=== PATIENT | female | born 1940 | race Caucasian/White ===

== ENCOUNTER 2020-11-09 10:15 | Outpatient (REF) | payer MEDICARE, SELFPAY ==
--- NOTE | 2020-11-09 13:49 | MHC.AU.AHA ---
Adult Audiological Evaluation Date of Visit: 11/09/20 Marketing Operations Analyst Used: Not Applicable Reason for Appointment: Audiologic re-evaluation due to question of change in hearing ability. 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 Ear History: Family History of Hearing Loss?: Yes Bothersome Tinnitus/Ringing/Noises in Ears: Both Ears Ear used on the phone: Right Ear Medical History: Medical History: High Blood Pressure, Measles, Rheumatoid Arthritis Medication List: Irbesartan Calcium, Centrum multivitamin Hearing Instrument History- Right Ear: Snowblower Mechanic: Vir2us Model: [email or web address] M 90-RT Serial Number: [id number] Battery Size: Rechargeable Repair Warranty: 10/03/2022 Loss and Damage Warranty: Dispensed By: [facility] Date of Fittin07/15/2019 Hearing Instrument History- Left Ear: Snowblower Mechanic: Ubidyneak Model: [email or web address] M 90-RT Serial Number: [id number] Battery Size: Rechargeable Warranty: 10/03/2022 Loss and Damage Warranty: 10/03/2022 Dispensed By: [facility] Date of Fittin07/15/2019 Otoscopy: Right Ear: Unremarkable Left Ear: Unremarkable Tympanometry: Not performed at today's visit as previous hearing test indicated normal middle ear function bilaterally Hearing Evaluation: Transducer(s) Used: Insert Earphones Bone Conduction Method: Conventional Audiometry Stimuli Used: Pure Tones Right Ear: Description of Hearing: Moderate sloping to moderately-severe sensorineural hearing loss Left Ear: Description of Hearing: Moderate sloping to severe sensorineural hearing loss Speech Recognition Threshold (SRT): Method Used: Monitored Live Voice Stimuli Used: Spondee Words Right Ear: 40 dB HL Left Ear: 40 dB HL Word Discrimination: Method: Recorded Lists Word Lists Used: NU-6 Right Ear: 100% at 80 dB HL Left Ear: 80% at 80 dB HL Comparison: Compared to most recent evaluation: Overall thresholds have decreased 5 dB and speech discrimination ability is stable for both ears. Recommendations: Audiological re-evaluation in one year. Will send a reminder card. Hearing aid maintenance performed today. Hearing aid(s) reprogrammed with updated test results. Diagnosis: Primary Diagnosis: H90.3 Bilateral Sensorineural Hearing Loss Services Performed: Comprehensive Audiological Evaluation (CPT 06741) Signature: Provider: Austin Lemus, [facility]
== END 2020-11-09 10:16 | disposition home or self-care (01) ==
LOC: HO.SH 10:15
PROVIDERS: Visit Provider Internal Medicine
DX: H90.3 Sensorineural hearing loss, bilateral (principal)
CPT/HCPCS: 92557

== ENCOUNTER 2021-12-27 11:04 | Outpatient (REF) | payer MEDICARE, SELFPAY ==
--- NOTE | 2022-01-09 10:42 | MHC.AU.AHA ---
Adult Audiological Evaluation Date of Visit: 12/27/21 Recreation Manager Used: Not Applicable Reason for Appointment: Audiologic re-evaluation to determine possible change in hearing as Mayra Del Rosario has a history of hearing loss and uses binaural hearing aids. 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 with 100% speech understanding for the right ear and 80% for the left ear at 80 dB HL Ear History: Family History of Hearing Loss?: Yes Medical History: Medical History: High Blood Pressure, Measles, Rheumatoid Arthritis Allergies: Medication List: Irbesartan, Calcium, Multivitamin Hearing Instrument History- Right Ear: Semiconductor Package Symbol Stamper: Hyasynth Bio Model: FusionOpseautoGraph M 90-RT Serial Number: [id number] Battery Size: Rechargeable Repair Warranty: 10/03/2022 Loss and Damage Warranty: 10/03/2022 Dispensed By: [facility] Date of Fittin07/15/2019 Hearing Instrument History- Left Ear: Semiconductor Package Symbol Stamper: Synapsifyak Model: FusionOpseo M 90-RT Serial Number: [id number] Battery Size: Rechargeable Warranty: 10/03/2022 Loss and Damage Warranty: 10/03/2022 Dispensed By: [facility] Date of Fittin07/15/2019 Otoscopy: Right Ear: Small amount of non-occluding cerumen Left Ear: Small amount of non-occluding cerumen Tympanometry: Did not test as previous testing has shown normal middle ear systems Hearing Evaluation: Transducer(s) Used: Insert Earphones Method: Conventional Audiometry Stimuli Used: Pure Tones Right Ear: Description of Hearing: Moderate to moderately-severe sensorineural hearing loss Left Ear: Description of Hearing: Moderate to severe sensorineural hearing loss Speech Recognition Threshold (SRT): Method Used: Monitored Live Voice Stimuli Used: Spondee Words Right Ear: 35 dB HL Left Ear: 35 dB HL Word Discrimination: Method: Recorded Lists Word Lists Used: NU-6 Right Ear: 72% at 75 dB HL 96% at 80 dB HL Left Ear: 68% at 75 dB HL 80% at 80 dB HL Comparison: Compared to the most recent evaluation: Hearing is stable. Recommendations: Audiological re-evaluation in one year. Will send a reminder card. Hearing aid maintenance performed today. Diagnosis: Primary Diagnosis: H90.3 Bilateral Sensorineural Hearing Loss Services Performed: Pure Tone- Air (CPT 90710) Speech Audiometry Threshold, with Speech Recognition (CPT 77181) Signature: Provider: Austin Lemus, [facility]
== END 2021-12-27 11:05 | disposition home or self-care (01) ==
LOC: HO.SH 11:04
PROVIDERS: Visit Provider Internal Medicine
DX: Z01.118 Encounter for examination of ears and hearing with other abnormal findings (principal); H90.3 Sensorineural hearing loss, bilateral
CPT/HCPCS: 92552; 92556

== ENCOUNTER 2022-07-24 09:54 | Outpatient (REF) | payer SELFPAY | END 2022-07-24 09:55 | disposition home or self-care (01) | LOC: HO.HAP 09:54 | PROVIDERS: Visit Provider Internal Medicine | DX: Z13.89 Encounter for screening for other disorder (principal) ==

== ENCOUNTER 2024-07-19 09:44 | Outpatient (REF) | payer SELFPAY | END 2024-07-19 09:45 | disposition home or self-care (01) | LOC: HO.HAP 09:44 | PROVIDERS: Visit Provider Internal Medicine | DX: Z13.89 Encounter for screening for other disorder (principal) ==

== ENCOUNTER 2024-07-22 09:16 | Outpatient (REF) | payer SELFPAY ==
--- NOTE | 2024-07-22 12:42 | MHC.AU.HA3 ---
Hearing Instrument Follow-Up- Binaural Date of Visit: 07/22/24 Right Ear: Make, Model, Color, Serial Number: [id number] Materials Handler Repair Warranty: 10/03/2022 Materials Handler Loss and Damage Warranty: 10/03/2022 [facility] Service Plan: 10/03/2022 Battery Size: Rechargeable Animal Killer/Slim Tube: #2 Medium [place]old/Dome/CShell/SlimTip:med power Type of Wax Guard: CeruShield Dispensed By: [facility] Date of Fittin07/15/2019 Left Ear: Make, Model, Color, Serial Number: [id number] Materials Handler Repair Warranty: 10/03/2022 Materials Handler Loss and Damage Warranty: 10/03/2022 [facility] Service Plan: 10/03/2022 Battery Size: Rechargeable Animal Killer/Slim Tube: #2 Medium Earmold/Dome/CShell/SlimTip: medium power Type of Wax Guard: CeruShield Dispensed By: 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 She reports lacking confidence in replacing domes and wax guards. Reviewed maintenance procedures and Mayra practiced the process. Recommendations: Recommendations: Hearing instrument follow-up or maintenance as needed. Diagnosis Code(s): Primary Diagnosis: H90.3 Bilateral Sensorineural Hearing Loss Signature: Provider: Lashanda Root, [facility]
== END 2024-07-22 09:17 | disposition home or self-care (01) ==
LOC: HO.HAP 09:16
PROVIDERS: Visit Provider Internal Medicine
DX: Z46.1 Encounter for fitting and adjustment of hearing aid (principal); H90.3 Sensorineural hearing loss, bilateral
CPT/HCPCS: 92593